=== PATIENT | female | born 1960 | race Two or more races ===

== ENCOUNTER 2021-03-23 16:41 | Inpatient (IN) | payer MEDICAID ==
[~2021-03-23] VITALS: Ht 157.5 cm; Wt 64.4 kg
--- NOTE | 2021-03-23 16:50 | NUR ---
TO ER BED 1, C/O HEART PALPITATION AND DIZZINESS SINCE YESTERDAY. CHANGED TO A GOWN, ATTACHED TO MONITOR
--- NOTE | 2021-03-23 17:00 | NUR ---
FAMILY AT BEDSIDE
[2021-03-23] MEDS ORDERED: DILTIAZEM HCL 25 MG IV ONE (17:03)
[2021-03-23 17:21] LABS: BASOPHILS # (AUTO) 0.1 K/uL (0.0-0.2); BASOPHILS % (AUTO) 1.7 % (0.0-2.0); EOSINOPHILS % (AUTO) 2.3 % (0.0-6.0); HEMATOCRIT 46 % (33-45); HEMOGLOBIN 14.8 g/dL (11.5-14.8); LYMPHOCYTES # (AUTO) 1.8 K/uL (0.8-4.8); LYMPHOCYTES % (AUTO) 26.2 % (20.0-44.0); MEAN CORPUSCULAR HGB CONC 32 g/dl (31.0-36.0); MEAN CORPUSCULAR VOLUME 97 fL (82-100); MONOCYTES # (AUTO) 0.6 K/uL (0.1-1.30); MONOCYTES % (AUTO) 8.3 % (2.0-12.0); NEUTROPHILS # (AUTO) 4.3 K/uL (1.8-8.9); NEUTROPHILS % (AUTO) 61.5 % (43.0-81.0); PLATELET COUNT (AUTO) 280 K/uL (150-450); RED BLOOD CELL COUNT(AUTO) 4.74 MIL/uL (4.0-5.2); WHITE BLOOD COUNT (AUTO) 7.1 K/uL (4.3-11.0)
[2021-03-23] MEDS ORDERED: FLUT16SP (17:21)
[2021-03-23] MEDS ORDERED: RIVA10TA PO (17:21)
[2021-03-23] MEDS ORDERED: ROSU20TA32 PO (17:21)
[2021-03-23] MEDS ORDERED: DIPH-1062 PO (17:21)
[2021-03-23] MEDS ORDERED: CHOL100062 PO (17:21)
[2021-03-23] MEDS ORDERED: CETI10TA14 PO (17:21)
[2021-03-23] MEDS ORDERED: METO25TA20 PO (17:21)
[2021-03-23] MEDS ORDERED: ASCO-352 PO (17:21)
[2021-03-23 17:29] LABS: CARBON DIOXIDE 21 mmol/L (21-32); CHLORIDE 109 mmol/L (98-107); GLUCOSE 87 mg/dL (74-106); POTASSIUM 4.5 mmol/L (3.5-5.1); SODIUM SERUM 144 mmol/L (136-145); UREA NITROGEN, BLOOD 22 mg/dL (7-18)
[2021-03-23] MEDS ORDERED: DILTIAZEM HCL 50 MG IV IV ONE ×2 (17:30→19:30)
[2021-03-23 17:42] LABS: ALANINE AMINOTRANSFERASE 36 U/L (12-78); ALBUMIN 3.9 g/dL (3.4-5.0); ALKALINE PHOSPHATASE 97 U/L (46-116); ASPARTATE AMINOTRANSFERASE 31 U/L (15-37); BILIRUBIN,TOTAL 0.5 mg/dL (0.2-1.0); TOTAL PROTEIN, SERUM 7.4 g/dL (6.4-8.2)
--- NOTE | 2021-03-23 18:40 | NUR ---
MOVE SHEET SUBMITTED AND CALLED FOR TELE BED.
--- NOTE | 2021-03-23 19:17 | NUR ---
COVID SWAB DONE AND SENT TO LAB
[2021-03-23] MEDS ORDERED: DILTIAZEM HCL 50 MG IV ONE (19:18)
--- NOTE | 2021-03-23 19:19 | NUR ---
VERBAL ORDER FOR 5MG CARDIZEM IVP
--- NOTE | 2021-03-23 20:36 | NUR ---
CALLED HOUSE SUP FOR TELE BED
--- NOTE | 2021-03-23 21:20 | NUR ---
TELE BED: 306-8
--- NOTE | 2021-03-23 21:37 | NUR ---
REPORT GIVEN TO SUSAN
[2021-03-23] MEDS ORDERED: MAG HYDROX/AL HYDROX/SIMETH 30 ML UDC PO PRN (22:00)
[2021-03-23] MEDS ORDERED: ACETAMINOPHEN 325 MG TABLET PO PRN (22:00)
[2021-03-23] MEDS ORDERED: HYDROCODONE/APAP 5/325MG TABLET PO PRN (22:00)
[2021-03-23] MEDS ORDERED: ONDANSETRON HCL/PF 4 MG/2 ML VIAL IVP PRN (22:00)
[2021-03-23] MEDS ORDERED: diphenhydrAMINE HCL 25 MG CAPSULE PO PRN (22:00)
[2021-03-23 22:10] VITALS: BP 135/94
--- NOTE | 2021-03-23 22:16 | NUR ---
PT TRANSPORTED TO [facility] ON HOUSE REGISTRY RN PER ACLS PROTOCOL WITHOUT INCIDENT
[2021-03-23] MEDS ORDERED: IV NS 0.9% 500 ML IV ONE (22:30)
[2021-03-23] MEDS: cetrizine 10 MG TABLET PO ONE ×2 (23:00→23:07)
--- NOTE | 2021-03-23 23:00 | NUR ---
Patient brought up by ER staff at 2210. Patient A&Ox4. Initial VS 135/94, HR 100, O2 sat 97%, temp 97.9, RR 18. Patient states her main complaint coming in was heart palpitations, dizziness, and SOB upon exertion. Patient reports that the heart palpitations are now gone as well as the dizziness. Denies SOB but patient is at rest. Denies chest pain or discomfort of any sort. Only c/o is anxiety -MD putting order in for xanax will admin as needed. HR now Afib 90s-100 on tele monitor. Oriented patient to unit and protocols. L hand #20G flushed and patent. Patient is ambulatory. skin intact. pupils equal and reactive to light. Lung sounds clear. bowel sounds active x4. no edema. Oriented patient to unit and protocols. Safety measures in place.
--- NOTE | 2021-03-23 23:04 | NUR ---
Patient reports that she no longer wants to take nighttime zyrtec because itll make her too drowsy in the AM if combined with Xanax. non-admin tonight's dose.
[2021-03-23] MEDS: ATORVASTATIN 40 MG TABLET PO SCH (23:07)
[2021-03-23] MEDS: METOPROLOL TARTRATE 25 MG TABLET PO SCH (23:08)
[2021-03-23] MEDS: ALPRAZOLAM 0.25 MG TABLET PO PRN (23:08)
[2021-03-23] MEDS: RIVAROXABAN 10 MG TABLET PO SCH (23:09)
[2021-03-23 23:36] VITALS: BP 135/94
[2021-03-24] VITALS: BP 127/81
[2021-03-24 04:00] VITALS: BP 130/96
--- NOTE | 2021-03-24 06:15 | NUR ---
BALANCE SCREWHEAD POLISHER CLOSING NOTES Patient has been A&Ox4. Afib on tele monitor generally between 70-100bpm but highest was 120 short lived episode. denies any palpitations, dizziness, sob, or CP at this time. no overnight events.
[2021-03-24 06:32] LABS: BASOPHILS % (AUTO) 0.8 % (0.0-2.0); EOSINOPHILS % (AUTO) 4.3 % (0.0-6.0); HEMATOCRIT 42 % (33-45); LYMPHOCYTES # (AUTO) 1.4 K/uL (0.8-4.8); LYMPHOCYTES % (AUTO) 28.4 % (20.0-44.0); MEAN CORPUSCULAR HGB CONC 33 g/dl (31.0-36.0); MEAN CORPUSCULAR VOLUME 96 fL (82-100); MONOCYTES # (AUTO) 0.4 K/uL (0.1-1.30); MONOCYTES % (AUTO) 8.2 % (2.0-12.0); NEUTROPHILS # (AUTO) 2.9 K/uL (1.8-8.9); NEUTROPHILS % (AUTO) 58.3 % (43.0-81.0); PLATELET COUNT (AUTO) 253 K/uL (150-450); RED BLOOD CELL COUNT(AUTO) 4.42 MIL/uL (4.0-5.2)
[2021-03-24 07:39] LABS: CALCIUM, SERUM 8.6 mg/dL (8.5-10.1); CREATININE 1.1 mg/dL (0.6-1.3); PHOSPHORUS 4.7 mg/dL (2.5-4.9); POTASSIUM 3.9 mmol/L (3.5-5.1)
[2021-03-24 08:00] VITALS: BP 128/87
--- NOTE | 2021-03-24 08:00 | NUR ---
PT. ALERT AND ORIENTEDX4.VS STABLE.
[2021-03-24] MEDS: FLUTICASONE PROPIONATE 16 GM BOTTLE NS SCH (08:57)
[2021-03-24] MEDS: CHOLECALCIFEROL 1,000 UNIT TABLET (VIT D3) PO SCH (08:57)
[2021-03-24] MEDS: PANTOPRAZOLE 40 MG TABLET.DR PO SCH (08:58)
[2021-03-24] MEDS: METOPROLOL TARTRATE 25 MG TABLET PO SCH (08:58)
[2021-03-24] MEDS: ASCORBIC ACID 500 MG TABLET PO SCH (08:59)
--- NOTE | 2021-03-24 10:45 | NUR ---
HAD SHORT EPISODE OF 160 HEART RATE.PT. WAS UP TO BATHROOM.AT THE TIME.
--- NOTE | 2021-03-24 11:30 | NUR ---
PINKY AND DR. POLK IN-TO ORDER NEW MEDS FOR PT.
[2021-03-24] MEDS: FUROSEMIDE 20 MG TABLET PO SCH (13:34)
[2021-03-24] MEDS: LOSARTAN POTASSIUM 25 MG TABLET PO SCH (13:35)
[2021-03-24] MEDS: DIGOXIN 0.125 MG TABLET PO SCH (13:35)
[2021-03-24 16:00] VITALS: BP 138/94
[2021-03-24] MEDS: cetrizine 10 MG TABLET PO SCH (17:59)
[2021-03-24] MEDS: RIVAROXABAN 10 MG TABLET PO SCH (18:00)
--- NOTE | 2021-03-24 18:00 | NUR ---
NO CHANGES AT THIS TIME.STABLE.
--- NOTE | 2021-03-24 19:00 | NUR ---
Received in bed pulse ox reads 97% room air alert and orientated asking for Xanax no c/o chest discomfort skin is warm and dry
[2021-03-24 20:00] VITALS: BP 123/74
[2021-03-24] MEDS: METOPROLOL TARTRATE 50 MG TABLET PO SCH (20:51)
[2021-03-24] MEDS: ALPRAZOLAM 0.25 MG TABLET PO PRN (21:35)
[2021-03-24] MEDS: ATORVASTATIN 40 MG TABLET PO SCH (21:35)
--- NOTE | 2021-03-25 05:35 | NUR ---
CLOSING NOTES: Controlled Afib this 12 hours no c/o chestoain requested Xanax for sleep given and effective for sleep amb to the bathroom independently
[2021-03-25 06:11] LABS: BASOPHILS % (AUTO) 0.4 % (0.0-2.0); EOSINOPHILS % (AUTO) 3.4 % (0.0-6.0); HEMATOCRIT 46 % (33-45); HEMOGLOBIN 15.2 g/dL (11.5-14.8); LYMPHOCYTES # (AUTO) 1.3 K/uL (0.8-4.8); LYMPHOCYTES % (AUTO) 22.6 % (20.0-44.0); MEAN CORPUSCULAR HGB CONC 33 g/dl (31.0-36.0); MEAN CORPUSCULAR VOLUME 97 fL (82-100); MONOCYTES # (AUTO) 0.4 K/uL (0.1-1.30); MONOCYTES % (AUTO) 7.8 % (2.0-12.0); NEUTROPHILS # (AUTO) 3.8 K/uL (1.8-8.9); NEUTROPHILS % (AUTO) 65.8 % (43.0-81.0); PLATELET COUNT (AUTO) 275 K/uL (150-450); RED BLOOD CELL COUNT(AUTO) 4.77 MIL/uL (4.0-5.2); WHITE BLOOD COUNT (AUTO) 5.7 K/uL (4.3-11.0)
[2021-03-25 07:18] LABS: CALCIUM, SERUM 8.9 mg/dL (8.5-10.1); CREATININE 1.2 mg/dL (0.6-1.3); MAGNESIUM 2.1 mg/dL (1.8-2.4); PHOSPHORUS 4.3 mg/dL (2.5-4.9); POTASSIUM 4.6 mmol/L (3.5-5.1)
[2021-03-25] MEDS: PANTOPRAZOLE 40 MG TABLET.DR PO SCH (07:18)
--- NOTE | 2021-03-25 07:23 | NUR ---
DIVISION MERCHANDISE MANAGER OPENING NOTES RECEIVED PATIENT IN BED, ASLEEP, ON ROOM AIR TOLERATING WELL, NOT IN ANY FORM OF ACUTE DISTRESS NOTED. IV ACCESS ON LEFT HAND G#20, PATENT AND FLUSHES WELL. ON EXTERNAL MONITOR SHOWING A-FIB HR AT 80'S. SAFETY PRECAUTIONS IN PLACE: BED ON LOWEST LOCKED POSITION, SIDE RAILS UP X 2, CALL LIGHT WITHIN EASY REACH. WILL CONTINUE TO MONITOR ACCORDINGLY.
[2021-03-25] MEDS: DIGOXIN 0.125 MG TABLET PO SCH (08:35)
[2021-03-25] MEDS: CHOLECALCIFEROL 1,000 UNIT TABLET (VIT D3) PO SCH (08:35)
[2021-03-25] MEDS: FUROSEMIDE 20 MG TABLET PO SCH (08:36)
[2021-03-25] MEDS: ASCORBIC ACID 500 MG TABLET PO SCH (08:36)
[2021-03-25] MEDS: LOSARTAN POTASSIUM 25 MG TABLET PO SCH (08:36)
[2021-03-25] MEDS: METOPROLOL TARTRATE 50 MG TABLET PO SCH ×2 (08:36→21:05)
[2021-03-25] MEDS: FLUTICASONE PROPIONATE 16 GM BOTTLE NS SCH (08:40)
--- NOTE | 2021-03-25 11:28 | NUR ---
RN NOTES SEEN AND EXAMINED ON ROUNDS BY DR. POLK WITH ORDER MADE AND CARRIED OUT. TO START ON AMIODARONE DRIP. PATIENT TRANSFERRED TO [facility] PER PROTOCOL. ENDORSED PATIENT TO [facility] R.N. CHARGE NURSE AND MD AWARE OF TRANSFER.
[2021-03-25] MEDS ORDERED: AMIODARONE 150 MG in IV D5W 100 ML IV ONE (12:00)
[2021-03-25] MEDS: AMIODARONE 450 MG in IV D5W 241 ML IV PRN ×2 (12:43→21:17)
[2021-03-25 13:55] VITALS: BP 112/78
[2021-03-25 15:07] VITALS: BP 112/66
[2021-03-25 16:00] VITALS: BP 100/60
[2021-03-25 16:01] VITALS: BP 102/64
[2021-03-25 17:11] VITALS: BP 107/77
[2021-03-25] MEDS: RIVAROXABAN 10 MG TABLET PO SCH (18:15)
[2021-03-25] MEDS: cetrizine 10 MG TABLET PO SCH (19:10)
[2021-03-25 20:00] VITALS: BP 113/77
--- NOTE | 2021-03-25 20:00 | NUR ---
TD RN notes Received pts in bed awake a/o x 4 able to make needs known on r/a no sob no distress noted .on tele afib on he monitor on amiodarone drip at 0.5 mg/min tolerating well no ase noted . all due meds given as ordered call light within reach all needs attended too ,v/s stable afebrile will continue to monitor pts.
[2021-03-25] MEDS: ATORVASTATIN 40 MG TABLET PO SCH (21:05)
[2021-03-25] MEDS: ALPRAZOLAM 0.25 MG TABLET PO PRN (21:20)
[2021-03-26] VITALS (26 sets, daily range): BP systolic 100–171; BP diastolic 60–137
[2021-03-26 06:31] LABS: BASOPHILS % (AUTO) 0.3 % (0.0-2.0); HEMATOCRIT 45 % (33-45); HEMOGLOBIN 14.6 g/dL (11.5-14.8); LYMPHOCYTES # (AUTO) 1.3 K/uL (0.8-4.8); LYMPHOCYTES % (AUTO) 20.1 % (20.0-44.0); MEAN CORPUSCULAR HGB CONC 33 g/dl (31.0-36.0); MEAN CORPUSCULAR VOLUME 96 fL (82-100); MONOCYTES # (AUTO) 0.4 K/uL (0.1-1.30); MONOCYTES % (AUTO) 6.3 % (2.0-12.0); NEUTROPHILS # (AUTO) 4.7 K/uL (1.8-8.9); NEUTROPHILS % (AUTO) 70.3 % (43.0-81.0); PLATELET COUNT (AUTO) 247 K/uL (150-450); RED BLOOD CELL COUNT(AUTO) 4.67 MIL/uL (4.0-5.2); WHITE BLOOD COUNT (AUTO) 6.7 K/uL (4.3-11.0)
--- NOTE | 2021-03-26 06:36 | NUR ---
cameron rn notes Pts remains in bed awake a/ox4 .Afib on monitor no sob no distress noted . remains on amiodarone drip at 0.5 mg/min well tolerated as ordered .Pts on r/a sating 97%,all needs attended too call light within reach pts is npo status from 12mn for possible rekha cardioversion.will endorse to rn day shift for continuity of care.
--- NOTE | 2021-03-26 07:05 | NUR ---
RN NOTES RECEIVED PT ON BED, A/Ox4, ON RA , O2 SAT WNL, NO SOB NOTED, ON TELE FABY LOVE , PT KEPT NPO THIS AM FOR TAMAR , SR UP x3, CALL LIGHT WITHIN EASY REACH, BED LOCKED AND IN LOWEST POSITION, CONTINUE TO MONITOR.
[2021-03-26 07:06] LABS: CALCIUM, SERUM 8.6 mg/dL (8.5-10.1); MAGNESIUM 2.1 mg/dL (1.8-2.4); PHOSPHORUS 4.1 mg/dL (2.5-4.9); POTASSIUM 4.4 mmol/L (3.5-5.1)
[2021-03-26] MEDS: CHOLECALCIFEROL 1,000 UNIT TABLET (VIT D3) PO SCH (08:23)
[2021-03-26] MEDS: PANTOPRAZOLE 40 MG TABLET.DR PO SCH (08:23)
[2021-03-26] MEDS: METOPROLOL TARTRATE 50 MG TABLET PO SCH ×2 (08:24→21:00)
[2021-03-26] MEDS: DIGOXIN 0.125 MG TABLET PO SCH (08:25)
[2021-03-26] MEDS: LOSARTAN POTASSIUM 25 MG TABLET PO SCH (08:25)
[2021-03-26] MEDS: FUROSEMIDE 20 MG TABLET PO SCH (08:25)
[2021-03-26] MEDS: ASCORBIC ACID 500 MG TABLET PO SCH (08:26)
[2021-03-26] MEDS: FLUTICASONE PROPIONATE 16 GM BOTTLE NS SCH (08:27)
--- NOTE | 2021-03-26 11:31 | NUR ---
RN NOTES PT TRANSFERRED TO ROOM 263 ICU BED VIA ACLS PROTOCOL FOR TAMAR . BELONGINGS TAKEN HOME BY PT'S DAUGHTERS , REPORT GIVEN TO DANAE GORDON FOR CONTINUITY OF CARE.
--- NOTE | 2021-03-26 11:40 | NUR ---
WAFER CUTTER RECEIVED PT FROM [facility] FOR TAMAR AND CARDIOVERSION. PT AWAKE AND ALERT. HL INTACT IN LEFT ARM.
[2021-03-26] MEDS ORDERED: ANESTHESIA TRAY IN PYXIS 1 EA TRAY MC ONE (11:46)
--- NOTE | 2021-03-26 12:40 | NUR ---
HEALTH AND WELLNESS DIRECTOR PT SIGNED CONSENT FOR ANESTHESIA AND PROCEDURE AFTER SPEAKING WITH DR HERNÁNDEZ AND DR POLK. TAMAR AND CARDIOVERSION COMPLETED. PT TOLERATED WELL. PT NOW AROUSEABLE WITH STABLE SPO2 AT 98%, VSS.
--- NOTE | 2021-03-26 12:45 | NUR ---
ASSUMED CARE OF PATIENT FOLLOWING TAMAR AND CARDIOVERSION. REPORT RECEIVED FROM GATO GORDON. PT AWAKE, STILL SLEEPY. SINUS ZACHERY IN THE 50'S ON THE MONITOR. WILL CONTINUE TO MONITOR IN ICU TILL PATIENT MORE AWAKE.
[2021-03-26] MEDS: AMIODARONE HCL 200 MG TABLET PO SCH ×2 (15:00→21:00)
--- NOTE | 2021-03-26 15:20 | NUR ---
RN NOTES RECEIVED PT FROM ICU IN ROOM 109 , A/Ox4, FAMILY AT THE BEDSIDE, ON TELE SB HR IN 50'S , PT INOCENCIO AND DISTRESS AT THIS TIME, VSS STABLE ,CONTINUE TO MONITOR.
--- NOTE | 2021-03-26 18:00 | NUR ---
RN N0TES HR REMAINS SINUS ZACHERY 50'S. PT IS A/O X4, EATING DINNER. PT STATED FEELING BETTER. FAMILY AT BEDSIDE. WILL ENDORSE TO NEXT SHIFT FOR CONTINUITY OF CARE
[2021-03-26] MEDS: RIVAROXABAN 10 MG TABLET PO SCH (18:04)
[2021-03-26] MEDS: cetrizine 10 MG TABLET PO SCH (18:12)
--- NOTE | 2021-03-26 19:00 | NUR ---
RN NOTES RECEIVED PATIENT IN BED AWAKE ORRIENTED X4, WITH L WRIST IV ACCESS G 20 FLUSHES WELL, NO SOB NOTED, NO SIGN AND SYMPTOMS OF PAIN AT THIS TIME. SAFETY MEASURE IN PLACE, BED ON LOWEST LOCK POSITION, HOB ELEVATED, CALL LIGHT WITHIN REACH, WILL CONTINUE TO MONITOR CLOSELY
--- NOTE | 2021-03-26 21:00 | NUR ---
EVAN NOTES CORDARONE 200 MG AND LOPRESSOR HEL DUE TO HR 69 BP 104/70 WILL CONTINUE TO MONITOR Addendum: 03/26/21 at 2311 by CHRIS BOLES RN HR IS 59 NOT 69 CORDARONE AND LOPRESSOR WAS HELD
[2021-03-26] MEDS: ATORVASTATIN 40 MG TABLET PO SCH (21:32)
[2021-03-27] VITALS: BP 100/62
[2021-03-27 04:00] VITALS: BP 98/58
--- NOTE | 2021-03-27 06:35 | NUR ---
RN NOTE PATIENT IN BED ALERT ORIENTED X4, NOT IN DISTRESSED. NO SOB NOTED NO SIGN AND SYMPTOMS OF PAIN DURING AT THIS TIME. WITH IV ACCESS ON L WRIST G 20 PATENT AND FLUSHES WELL. SAFETY MEASURE IN PLACE. BED IN LOWEST LOCKED POSITION, CALL LIGHT WITHIN REACH. ALL NEEDS ATTENDED. WILL ENDORSED TO MORNING NURSE
[2021-03-27 06:54] LABS: CALCIUM, SERUM 8.8 mg/dL (8.5-10.1); CREATININE 1.2 mg/dL (0.6-1.3); MAGNESIUM 2.2 mg/dL (1.8-2.4); PHOSPHORUS 4.7 mg/dL (2.5-4.9); POTASSIUM 4.8 mmol/L (3.5-5.1)
[2021-03-27 06:57] LABS: BASOPHILS % (AUTO) 0.3 % (0.0-2.0); EOSINOPHILS % (AUTO) 2.3 % (0.0-6.0); HEMATOCRIT 44 % (33-45); HEMOGLOBIN 14.4 g/dL (11.5-14.8); LYMPHOCYTES # (AUTO) 1.1 K/uL (0.8-4.8); LYMPHOCYTES % (AUTO) 14.1 % (20.0-44.0); MEAN CORPUSCULAR HGB CONC 33 g/dl (31.0-36.0); MEAN CORPUSCULAR VOLUME 96 fL (82-100); MONOCYTES # (AUTO) 0.7 K/uL (0.1-1.30); MONOCYTES % (AUTO) 8.2 % (2.0-12.0); NEUTROPHILS # (AUTO) 5.9 K/uL (1.8-8.9); NEUTROPHILS % (AUTO) 75.1 % (43.0-81.0); PLATELET COUNT (AUTO) 231 K/uL (150-450); RED BLOOD CELL COUNT(AUTO) 4.53 MIL/uL (4.0-5.2); WHITE BLOOD COUNT (AUTO) 7.9 K/uL (4.3-11.0)
--- NOTE | 2021-03-27 08:12 | NUR ---
TELE/RN OPENING NOTE RECEIVED PATIENT IN BED ALERT ORIENTED X4, ON ROOM AIR, NO SOB NOTED. NO SIGN AND SYMPTOMS OF PAIN DURING AT THIS TIME. WITH IV ACCESS ON LEFT WRIST #20G PATENT AND FLUSHES WELL. SAFETY MEASURES IN PLACE. BED IN LOWEST LOCKED POSITION, CALL LIGHT WITHIN REACH, SIDE RAILS UPX2. WILL CONTINUE TO MONITOR PATIENT.
[2021-03-27] MEDS: PANTOPRAZOLE 40 MG TABLET.DR PO SCH (08:27)
[2021-03-27] MEDS: ASCORBIC ACID 500 MG TABLET PO SCH (08:28)
[2021-03-27] MEDS: METOPROLOL TARTRATE 50 MG TABLET PO SCH (08:28)
[2021-03-27] MEDS: CHOLECALCIFEROL 1,000 UNIT TABLET (VIT D3) PO SCH (08:28)
[2021-03-27] MEDS: LOSARTAN POTASSIUM 25 MG TABLET PO SCH (08:28)
[2021-03-27] MEDS: FUROSEMIDE 20 MG TABLET PO SCH (08:28)
[2021-03-27] MEDS: AMIODARONE HCL 200 MG TABLET PO SCH (08:30)
[2021-03-27] MEDS: FLUTICASONE PROPIONATE 16 GM BOTTLE NS SCH (11:10)
[2021-03-27 12:08] VITALS: BP 130/62
[2021-03-27] MEDS ORDERED: METO100T14 PO (16:13)
[2021-03-27] MEDS ORDERED: AMIO400T5 PO (16:13)
[2021-03-27] MEDS ORDERED: LOSA25TA27 PO (16:55)
[2021-03-27] MEDS ORDERED: FURO-145 PO (16:55)
[2021-03-27 16:56] VITALS: BP 90/50
[2021-03-27] MEDS: RIVAROXABAN 10 MG TABLET PO SCH (18:00)
[2021-03-27] MEDS: cetrizine 10 MG TABLET PO SCH (18:00)
--- NOTE | 2021-03-27 19:00 | NUR ---
TELE/DIRECT SUPPORT STAFF NOTES PATIENT IS ALERT AND ORIENTED X4, ABLE TO MAKE NEEDS KNOWN. STABLE ON ROOM AIR. PATIENT IS MEDICALLY STABLE AND DR. GARY DISCHARGE PATIENT TO HOME. DISCHARGE INSTRUCTIONS GIVEN TO THE PATIENT AND ABLE TO VERBALIZED UNDERSTANDING. ALL BELONGINGS ACCOUNTED FOR. IV ACCESS DISCONTINUED. PATIENT WAS PICKED UP BY DAUGHTER VIA PRIVATE CAR.
== END 2021-03-27 20:39 | disposition home or self-care (01) | DRG 201 ==
LOC: ER 16:49 → TELE 21:21 → TELE-TD 03-25 11:15 → ICU 03-26 11:23 → TELE-TD 03-26 15:19 → TELE1 03-26 15:33
PROVIDERS: ADMIT Nurse Practitioner Family; ATTEND Nurse Practitioner Acute Care
PROC: 5A2204Z Restoration of Cardiac Rhythm, Single (ICD-10-PCS; principal; 2021-03-26)
PROC: B24BZZ4 Ultrasonography of Heart with Aorta, Transesophageal (ICD-10-PCS; 2021-03-26)
DX: I48.19 Other persistent atrial fibrillation (principal); N17.0 Acute kidney failure with tubular necrosis; I50.43 Acute on chronic combined systolic (congestive) and diastolic (congestive) heart failure; I27.20 Pulmonary hypertension, unspecified; I42.9 Cardiomyopathy, unspecified; D68.69 Other thrombophilia; Z20.822 Contact with and (suspected) exposure to COVID-19; Z79.01 Long term (current) use of anticoagulants; E78.5 Hyperlipidemia, unspecified; I11.0 Hypertensive heart disease with heart failure; R00.0 Tachycardia, unspecified; Z86.16 Personal history of COVID-19
CPT/HCPCS: 36415; 71045-TC; 80048-TC; 80061-TC; 80076-TC; 83605-TC; 83735-TC; 83880; 84100-TC; 84484-TC; 85025-TC; 87081-TC; 93312-TC; C9803; G0378; J0282; J3490; J7030; J7040; J7060

== ENCOUNTER 2022-01-10 19:11 | Emergency (ER) | payer MEDICAID ==
[~2022-01-10] VITALS: Ht 152.4 cm; Wt 63.5 kg
[~2022-01-10 19:11] MED LIST: AMIO400T5 PO; ASCO-352 PO; CETI10TA14 PO; CHOL100062 PO; DIPH-1062 PO; FLUT16SP; FURO-145 PO; LOSA25TA27 PO; METO100T14 PO; RIVA10TA PO; ROSU20TA32 PO
[2022-01-10] MEDS ORDERED: HYDROCODONE/APAP 5/325MG TABLET ONE (21:15)
--- NOTE | 2022-01-10 21:17 | NUR ---
XRAY AT BED SIDE
--- NOTE | 2022-01-10 21:25 | NUR ---
PATIENT REFUSED NORCO , EXPLAINED RISK AND BENEFITS, OFFER 3X STILL REFUSED.
[2022-01-10] MEDS ORDERED: HYDROCODONE/APAP 5/325MG TABLET PO ONE (21:30)
[2022-01-10] MEDS ORDERED: HYDR-4303 PO (22:23)
--- NOTE | 2022-01-10 23:20 | NUR ---
Patient discharged to home in stable condition. Written and verbal after care instructions given. Patient verbalizes understanding of instruction. pt. ambulatory with a steady gait
[2022-01-10 23:23] VITALS: BP 135/76
== END 2022-01-10 23:24 | disposition home or self-care (01) ==
LOC: ER 19:14
DX: S76.012A Strain of muscle, fascia and tendon of left hip, initial encounter (principal); S80.12XA Contusion of left lower leg, initial encounter; I48.91 Unspecified atrial fibrillation; Z79.01 Long term (current) use of anticoagulants; Z98.890 Other specified postprocedural states; Z79.899 Other long term (current) drug therapy; W10.8XXA Fall (on) (from) other stairs and steps, initial encounter; Y93.89 Activity, other specified; Y92.89 Other specified places as the place of occurrence of the external cause; Y99.8 Other external cause status
CPT/HCPCS: 73502; 73590-TC